=== PATIENT | male | born 1990 | race Caucasian/White ===

== ENCOUNTER 2021-09-04 18:05 | Emergency (ER) | payer MEDICAID ==
[~2021-09-04] VITALS: Ht 167.6 cm; Wt 81.6 kg
[2021-09-04 18:21] VITALS: BP_SYST 150
[2021-09-04] MEDS ORDERED: IBUP-1969 PO (20:02)
== END 2021-09-04 20:30 | disposition left against medical advice (07) ==
LOC: SED 18:05
DX: S83.92XA Sprain of unspecified site of left knee, initial encounter (principal); Z79.899 Other long term (current) drug therapy; V91.33XA Hit or struck by falling object due to accident to other powered watercraft, initial encounter; Y93.89 Activity, other specified; Y92.89 Other specified places as the place of occurrence of the external cause; Y99.8 Other external cause status
CPT/HCPCS: 73564; 99283